=== PATIENT | female | born 1995 | race American Indian/Alaskan Native ===

== ENCOUNTER 2017-10-31 12:23 | Outpatient (CLI) | payer OTHER ==
[2017-10-31] MEDS ORDERED: SYNTHROID100 MCG PO (13:41)
[2017-10-31] MEDS ORDERED: OBSTETRIX DHA1 EACH PO (13:42)
== END 2017-11-01 15:35 | disposition home or self-care (01) ==
LOC: OBS/DEL 12:23
DX: O99.612 Diseases of the digestive system complicating pregnancy, second trimester (principal); K21.9 Gastro-esophageal reflux disease without esophagitis

== ENCOUNTER 2018-02-01 07:39 | Outpatient (CLI) | payer OTHER ==
[~2018-02-01 07:39] MED LIST: OBSTETRIX DHA1 EACH PO; SYNTHROID100 MCG PO
== END 2018-02-01 12:10 | disposition home or self-care (01) ==
LOC: OBS/DEL 07:39
DX: O47.1 False labor at or after 37 completed weeks of gestation (principal); Z34.03 Encounter for supervision of normal first pregnancy, third trimester

== ENCOUNTER 2018-02-05 09:18 | Inpatient (IN) | payer OTHER ==
[~2018-02-05] VITALS: Ht 162.6 cm; Wt 3.2 kg
[2018-02-13] MEDS ORDERED: ACYCLOVIR400 MG PO (15:15)
[2018-02-13] MEDS ORDERED: SYNTHROID88 MCG PO (15:15)
== END 2018-02-15 13:14 | DRG 774 ==
LOC: OB/GYN 02-13 09:49 → LDR 02-13 09:49 → OB/GYN 02-13 19:55
PROC: 10E0XZZ Delivery of Products of Conception, External Approach (ICD-10-PCS; principal; 2018-02-13)
PROC: 0KQM0ZZ Repair Perineum Muscle, Open Approach (ICD-10-PCS; 2018-02-13)
PROC: 3E0P7VZ Introduction of Hormone into Female Reproductive, Via Natural or Artificial Opening (ICD-10-PCS; 2018-02-13)
PROC: 3E033VJ Introduction of Other Hormone into Peripheral Vein, Percutaneous Approach (ICD-10-PCS; 2018-02-13)
PROC: 4A033R1 Measurement of Arterial Saturation, Peripheral, Percutaneous Approach (ICD-10-PCS; 2018-02-13)
PROC: 4A1HXCZ Monitoring of Products of Conception, Cardiac Rate, External Approach (ICD-10-PCS; 2018-02-13)
DX: O70.1 Second degree perineal laceration during delivery (principal); O98.52 Other viral diseases complicating childbirth; Z37.0 Single live birth; B00.89 Other herpesviral infection; O99.824 Streptococcus B carrier state complicating childbirth; Z3A.39 39 weeks gestation of pregnancy

== ENCOUNTER 2018-05-04 15:05 | Emergency (ER) | payer OTHER ==
[~2018-05-04] VITALS: Ht 165.1 cm; Wt 102.1 kg
[~2018-05-04 15:05] MED LIST changes: +ACYCLOVIR400 MG PO; +SYNTHROID88 MCG PO
== END 2018-05-04 18:31 | disposition home or self-care (01) ==
LOC: ER 15:05
DX: N39.0 Urinary tract infection, site not specified (principal)

== ENCOUNTER 2018-05-09 12:02 | Emergency (ER) | payer OTHER ==
[~2018-05-09] VITALS: Ht 165.1 cm; Wt 102.1 kg
[2018-05-09] MEDS ORDERED: PHOSPHASAL TAB1 EACH (12:35)
[2018-05-09] MEDS ORDERED: CEFADROXIL1 GM (12:36)
== END 2018-05-09 22:26 | disposition home or self-care (01) ==
LOC: ER 12:02
DX: N39.0 Urinary tract infection, site not specified (principal); B37.3 Candidiasis of vulva and vagina; R10.2 Pelvic and perineal pain

== ENCOUNTER → 2018-06-07 | Emergency (ER) | payer OTHER ==
[~2018-06-07] MED LIST changes: +CEFADROXIL1 GM; +PHOSPHASAL TAB1 EACH
== END | disposition left against medical advice (07) ==
LOC: ER 14:42
DX: Z53.20 Procedure and treatment not carried out because of patient's decision for unspecified reasons (principal)

== ENCOUNTER 2018-08-15 22:24 | Emergency (ER) | payer OTHER ==
[~2018-08-15] VITALS: Ht 165.1 cm; Wt 111.1 kg
[2018-08-15] MEDS ORDERED: SYNTHROID112 MCG (22:48)
== END 2018-08-16 03:22 | disposition home or self-care (01) ==
LOC: ER 22:24
DX: O26.891 Other specified pregnancy related conditions, first trimester (principal); R10.2 Pelvic and perineal pain; Z34.01 Encounter for supervision of normal first pregnancy, first trimester

== ENCOUNTER 2018-12-30 00:56 | Outpatient (CLI) | payer OTHER ==
[~2018-12-30 00:56] MED LIST changes: +SYNTHROID112 MCG
== END 2018-12-30 18:43 ==
LOC: OBS/DEL 00:56
DX: O26.893 Other specified pregnancy related conditions, third trimester (principal); K29.60 Other gastritis without bleeding; E86.0 Dehydration; O60.03 Preterm labor without delivery, third trimester; Z34.03 Encounter for supervision of normal first pregnancy, third trimester

== ENCOUNTER 2019-02-04 12:00 | Inpatient (IN) | payer OTHER ==
[~2019-02-04] VITALS: Ht 165.1 cm; Wt 116.1 kg
[2019-02-16] MEDS ORDERED: PRENATABS RX T1 EACH PO (00:02)
== END 2019-02-17 19:14 | disposition home or self-care (01) | DRG 807 ==
LOC: LDR 02-15 18:23 → OB/GYN 02-16 00:41
PROVIDERS: ADMIT Specialist
PROC: 10E0XZZ Delivery of Products of Conception, External Approach (ICD-10-PCS; principal; 2019-02-15)
PROC: 10907ZC Drainage of Amniotic Fluid, Therapeutic from Products of Conception, Via Natural or Artificial Opening (ICD-10-PCS; 2019-02-15)
PROC: 3E033VJ Introduction of Other Hormone into Peripheral Vein, Percutaneous Approach (ICD-10-PCS; 2019-02-15)
PROC: 4A1HXCZ Monitoring of Products of Conception, Cardiac Rate, External Approach (ICD-10-PCS; 2019-02-15)
DX: O80 Encounter for full-term uncomplicated delivery (principal); Z37.0 Single live birth; Z3A.38 38 weeks gestation of pregnancy

== ENCOUNTER 2019-02-15 15:01 | Outpatient (CLI) | payer OTHER ==
[2019-02-16] MEDS ORDERED: PRENATABS RX T1 EACH PO (00:02)
== END 2019-02-15 18:00 | disposition home or self-care (01) ==
LOC: OBS/DEL 15:01
DX: O47.1 False labor at or after 37 completed weeks of gestation (principal); Z34.83 Encounter for supervision of other normal pregnancy, third trimester

== ENCOUNTER 2019-08-17 13:41 | Emergency (ER) | payer OTHER ==
[~2019-08-17] VITALS: Ht 167.6 cm; Wt 117.9 kg
[~2019-08-17 13:41] MED LIST changes: +PRENATABS RX T1 EACH PO
== END 2019-08-17 18:58 | disposition home or self-care (01) ==
LOC: ER 13:41
DX: O20.0 Threatened abortion (principal)

== ENCOUNTER 2019-12-15 21:35 | Emergency (ER) | payer OTHER ==
[~2019-12-15] VITALS: Ht 165.1 cm; Wt 116.6 kg
[2019-12-16] MEDS ORDERED: KETO10TA2 PO (00:46)
[2019-12-16] MEDS ORDERED: CEFUROXIME500 MG PO (00:46)
== END 2019-12-16 01:06 | disposition home or self-care (01) ==
LOC: ER 21:35
DX: N39.0 Urinary tract infection, site not specified (principal); N83.01 Follicular cyst of right ovary; R10.2 Pelvic and perineal pain

== ENCOUNTER 2021-08-30 18:22 | Emergency (ER) | payer OTHER ==
[~2021-08-30] VITALS: Ht 165.1 cm; Wt 131.5 kg
[~2021-08-30 18:22] MED LIST changes: +CEFUROXIME500 MG PO; +KETO10TA2 PO
== END 2021-08-30 22:14 | disposition home or self-care (01) ==
LOC: ER 18:22
DX: O26.851 Spotting complicating pregnancy, first trimester (principal); Z3A.01 Less than 8 weeks gestation of pregnancy; O99.611 Diseases of the digestive system complicating pregnancy, first trimester; O99.280 Endocrine, nutritional and metabolic diseases complicating pregnancy, unspecified trimester; K29.60 Other gastritis without bleeding; E07.9 Disorder of thyroid, unspecified

== ENCOUNTER 2021-09-17 13:45 | Emergency (ER) | payer OTHER ==
[~2021-09-17] VITALS: Ht 165.1 cm; Wt 127.0 kg
[2021-09-17] MEDS ORDERED: SYNTHROID200 MCG (13:53)
[2021-09-17] MEDS ORDERED: INTESTINEX680 M1 PO (16:42)
[2021-09-17] MEDS ORDERED: CLINDAMYCIN HC300 MG PO (16:42)
== END 2021-09-17 17:11 ==
LOC: ER 13:45
DX: N61.1 Abscess of the breast and nipple (principal)

== ENCOUNTER → 2021-09-27 | Emergency (ER) | payer OTHER ==
[~2021-09-27] VITALS: Ht 165.1 cm; Wt 82.1 kg
[~2021-09-27] MED LIST changes: +CLINDAMYCIN HC300 MG PO; +INTESTINEX680 M1 PO; +SYNTHROID200 MCG
== END | disposition left against medical advice (07) ==
LOC: ER 13:28
DX: O20.0 Threatened abortion (principal); Z53.29 Procedure and treatment not carried out because of patient's decision for other reasons; Z3A.00 Weeks of gestation of pregnancy not specified

== ENCOUNTER 2022-01-07 09:23 | Emergency (ER) | payer OTHER ==
[~2022-01-07] VITALS: Ht 165.1 cm; Wt 127.0 kg
== END 2022-01-07 14:20 | disposition home or self-care (01) ==
LOC: ER 09:23
DX: O20.8 Other hemorrhage in early pregnancy (principal); Z3A.01 Less than 8 weeks gestation of pregnancy

== ENCOUNTER 2022-06-27 18:07 | Outpatient (CLI) | payer OTHER | END 2022-06-28 11:20 | disposition home or self-care (01) | LOC: OBS/DEL 18:07 | PROVIDERS: ATTEND Specialist | DX: O26.893 Other specified pregnancy related conditions, third trimester (principal); Z3A.30 30 weeks gestation of pregnancy; R10.2 Pelvic and perineal pain; D64.9 Anemia, unspecified ==

== ENCOUNTER 2022-08-05 15:40 | Outpatient (CLI) | payer OTHER ==
[2022-08-05] MEDS ORDERED: PRENATAL CAPLE1 EAC1 PO (16:25)
== END 2022-08-06 13:07 | disposition home or self-care (01) ==
LOC: OBS/DEL 15:40
PROVIDERS: ATTEND Specialist
DX: O47.03 False labor before 37 completed weeks of gestation, third trimester (principal); Z3A.36 36 weeks gestation of pregnancy; O62.8 Other abnormalities of forces of labor; Z20.822 Contact with and (suspected) exposure to COVID-19

== ENCOUNTER 2024-07-07 10:40 | Outpatient (CLI) | payer OTHER ==
[~2024-07-07 10:40] MED LIST changes: +PRENATAL CAPLE1 EAC1 PO
== END 2024-07-07 10:46 | disposition home or self-care (01) ==
LOC: SONOGRAMA 10:40
PROVIDERS: ATTEND Pathology Anatomic Pathology & Clinical Pathology
DX: D34 Benign neoplasm of thyroid gland (principal); E06.3 Autoimmune thyroiditis; E04.2 Nontoxic multinodular goiter